=== PATIENT | female | born 1955 | race Caucasian/White ===

== ENCOUNTER 2017-07-16 16:15 | Outpatient (CLI) | payer OTHER ==
--- NOTE | 2017-07-17 15:25 | MRI Report ---
EXAM: LEFT KNEE MRI WITHOUT CONTRAST EXAM DATE: 07/16/2017 05:01 PM. CLINICAL HISTORY: Left knee pain. COMPARISON: None. TECHNIQUE: Multiplanar, multisequence T1-weighted and fluid-sensitive sequences of the knee without c ontrast. Other: None. FINDINGS: Bones: Subjacent marrow edema seen in the trochlear groove. Small cyst versus enchondroma seen distal femur measures about 5 mm. No fractures. Marginal arthrosis seen at the medial and lateral compartme nts. 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 Some grade 4 chondr omalacia at the medial patellar facet, some grade 3 chondromalacia at the patellar apex. Multifocal g rade 3-4 chondromalacia on both sides of the medial compartment. Medial Meniscus: Medial meniscus is intact, somewhat subluxed out of the joint, bowing the otherwise intact and normal-appearing MCL medially. Lateral Meniscus: The lateral meniscus is intact. Cruciate Ligaments: The anterior and posterior cruciate ligaments are intact. Collateral Ligaments: The medial collateral and lateral collateral ligamentous structures are intact. Tendons: The quadriceps, patellar, semimembranosus, and popliteus tendons are unremarkable. Musculature: No edema or fatty atrophy. Other: Small joint effusion. No popliteal cyst. Small ganglion arises from the posterior margin of th e knee . Please see series 501 image 16. No loose bodies. The medial and lateral retinacula are intac t. Some edema is seen in Hoffa's fat pad. IMPRESSION: 1. Subjacent marrow edema in the trochlear groove with some associated grade 3-4 chondromalacia. No f ractures. Marginal arthrosis at the medial and lateral compartments. Multifocal grade 3-4 chondromala felicita in both sides of the medial compartment. 2. Medial meniscus is intact, somewhat subluxed out of the joint, bowing the otherwise intact and nor mal-appearing MCL medially. 3. LCL, cruciates appear normal. Some edema in Hoffa's fat pad. [facility] MUSCULOSKELETAL RADIOLOGY SECTION Referring Provider Line: [phone] SITE ID: [id number]
== END 2017-07-16 16:16 | disposition home or self-care (01) ==
LOC: DI 16:15
DX: M25.562 Pain in left knee (principal); M94.262 Chondromalacia, left knee

== ENCOUNTER 2018-05-21 14:08 | Emergency (ER) | payer OTHER ==
--- NOTE | 2018-05-21 15:03 | XRAY Report ---
Reason: injury Procedure Date: 05/21/2018 Accession Number: [id number] / [id number] Procedure: XR - Ankle 3 View LT CPT Code: FULL RESULT: EXAM: LEFT ANKLE RADIOGRAPHY EXAM DATE: 05/21/2018 02:51 PM. CLINICAL HISTORY: Injury. COMPARISON: None. TECHNIQUE: 3 views. FINDINGS: Bones: There is a nondisplaced fracture of the distal fibula. Joints: No subluxations. Soft Tissues: There is lateral soft tissue swelling. IMPRESSION: Distal fibula fracture [facility]
--- NOTE | 2018-05-21 16:21 | ED Physician Documentation ---
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 - Present Medications Home Medications: Ambulatory Orders Medication Instructions Recorded Confirmed Home Medications Unobtainable 05/21/18 05/21/18 [HOME MEDICATIONS UNOBTAINABLE] - Allergies Allergies/Adverse Reactions: Allergies Allergy/AdvReac Type Severity Reaction Status Date / Time Penicillins Allergy Edema Verified 05/21/18 14:23 - Social History Does the pt smoke?: No Smoking Status: Never smoker Does the pt drink ETOH?: No Does the pt have substance abuse?: No Substance Use and Type: Marijuana - Immunizations Immunizations are current?: Yes - POLST Patient has POLST: No PD ED PE NORMAL - Vitals Vital signs reviewed: Yes - Extremities Extremities: Other (knee NT, prox tib fin NT, lateral ankle + edema and TTP la teral mall and ST inferior to lateral mall, no 5th MT TTP, MSV intact) Results - Vitals Vitals: Vital Signs - 24 hr 05/21/18 14:21 Temperature 36.7 C Heart Rate 69 Respiratory 18 Rate Blood Pressure 151/77 H O2 Saturation 100 Oxygen O2 Source Room air Procedures - Splint (location) LLE Splint applied by: Tech Type of splint: Fiberglass, Short leg, Posterior Other: Patient tolerated well, No complications, Neurovascular intact, Crutches provided, Other Departure - Departure Disposition: 01 Home, Self Care Clinical Impression: Fracture of distal fibula Qualifiers: Encounter type: initial encounter Fracture type: closed Fracture morphology: other fracture Laterality: left Qualified Code(s): S82.832A - Other fracture of upper and lower end of left fibula, initial encounter for closed fracture Condition: Good Instructions: ED Cast Care Fiberglass, ED Fx Ankle Lateral Malleolus Follow-Up: [facility] [Provider Group] Comments: Ice and elevate to keep the swelling down Motrin and tylenol for the pain Wear the splint and use the crutches - no weight bearing Follow up with orthopedics - call to schedule Return if worse Forms: Activity restrictions
[2018-05-21 17:04] VITALS: BP 148/78
== END 2018-05-21 16:50 | disposition home or self-care (01) ==
LOC: ED 14:08
DX: I10 Essential (primary) hypertension (principal); S82.832A Other fracture of upper and lower end of left fibula, initial encounter for closed fracture; X50.1XXA Overexertion from prolonged static or awkward postures, initial encounter; Y93.01 Activity, walking, marching and hiking
CPT/HCPCS: 29515; 99283

== ENCOUNTER 2019-08-31 09:04 | Emergency (ER) | payer OTHER ==
--- NOTE | 2019-08-31 09:42 | ED Physician Documentation ---
History of Present Illness - Stated complaint Stated Complaint: BILAT LEG PX - Chief complaint Chief Complaint: General - Additonal information Additional information: This is a 64-year-old female with a history of hypertension who presents with multiple chronic complaints. For the last 6 weeks she recounts that she occasionally will have sweating in her feet and her hands which will resolve spontaneously. She intermittently gets cramps in her legs. There is a bilateral cramps, and they are not associated with any swelling or redness. No cramps at this moment. She feels sometimes flushed in her face and this last for few minutes. She states that she has been very fatigued from taking care of her daughter who has multiple sclerosis. She has been seen by her primary care provider for these complaints, and states that they restarted her on her blood pressure medications, but she has not felt better despite this, and she has not any blood work done so she is hoping to get checked out today. She denies chest pain, shortness of breath, fever, vomiting, diarrhea. She denies any abdominal pain but states that time she will have a feeling like her entire abdomen is cramping up, this is been going on years since she had a tummy tuck. At this time she has no cramping or discomfort. 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 - Present Medications Home Medications: Ambulatory Orders Medication Instructions Recorded Confirmed Home Medications Unobtainable 05/21/18 05/21/18 [HOME MEDICATIONS UNOBTAINABLE] - Allergies Allergies/Adverse Reactions: Allergies Allergy/AdvReac Type Severity Reaction Status Date / Time Penicillins Allergy Edema Verified 08/31/19 09:16 - Social History Does the pt smoke?: No Smoking Status: Never smoker Does the pt drink ETOH?: No Does the pt have substance abuse?: No - Immunizations Immunizations are current?: Yes - POLST Patient has POLST: No PD ED PE NORMAL - Vitals Vital signs reviewed: Yes - General General: Alert and oriented X 3, No acute distress - HEENT HEENT: Atraumatic, PERRL - Neck Neck: Supple, no meningeal sign - Cardiac Cardiac: RRR, No murmur - Respiratory Respiratory: No respiratory distress, Clear bilaterally - Abdomen Abdomen: Normal bowel sounds, Soft, Non tender, Non distended - Derm Derm: Warm and dry - Extremities Extremities: No deformity, No tenderness to palpate, Normal ROM s pain, No edema, No calf tenderness / cord - Neuro Neuro: Alert and oriented X 3, bedspread seamer 2-12 intact, No motor deficit, No sensory deficit, Normal speech - Psych Psych: Normal mood, Normal affect Results - Vitals Vitals: Oxygen O2 Source Room air - Labs Labs: Laboratory Tests 08/31/19 08/31/19 08/31/19 10:03 10:24 10:24 WBC 5.9 RBC 5.02 Hgb 15.2 Hct 45.2 MCV 90.0 MCH 30.3 MCHC 33.6 RDW 12.6 Plt Count 318 MPV 9.9 Neut # (Auto) 4.3 Lymph # (Auto) 1.2 L [place] # (Auto) 0.4 Eos # (Auto) 0.0 Baso # (Auto) 0.1 Absolute Nucleated RBC 0.00 Nucleated RBC % 0.0 ESR Sodium 138 Potassium 3.8 Chloride 103 Carbon Dioxide 24 Anion Gap 11.0 BUN 11 Creatinine 0.7 Estimated GFR (MDRD) 85 L Glucose 128 H Calcium 10.1 Total Bilirubin 0.5 AST 23 ALT 24 Alkaline Phosphatase 68 Total Protein 7.9 Albumin 4.9 Globulin 3.0 Albumin/Globulin Ratio 1.6 Lipase 30 TSH Urine Color YELLOW Urine Clarity CLEAR Urine pH 6.0 Ur Specific [place] <=1.005 Urine Protein NEGATIVE Urine Glucose (UA) NEGATIVE Urine Ketones NEGATIVE Urine Occult Blood NEGATIVE Urine Nitrite NEGATIVE Urine Bilirubin NEGATIVE Urine Urobilinogen 0.2 (NORMAL) Ur Leukocyte Esterase NEGATIVE Ur Microscopic Review NOT INDICATED 08/31/19 08/31/19 10:24 10:24 WBC RBC Hgb Hct MCV MCH MCHC RDW Plt Count MPV Neut # (Auto) Lymph # (Auto) [place] # (Auto) Eos # (Auto) Baso # (Auto) Absolute Nucleated RBC Nucleated RBC % ESR 3 Sodium Potassium Chloride Carbon Dioxide Anion Gap BUN Creatinine Estimated GFR (MDRD) Glucose Calcium Total Bilirubin AST ALT Alkaline Phosphatase Total Protein Albumin Globulin Albumin/Globulin Ratio Lipase TSH 0.88 Urine Color Urine Clarity Urine pH Ur Specific [place] Urine Protein Urine Glucose (UA) Urine Ketones Urine Occult Blood Urine Nitrite Urine Bilirubin Urine Urobilinogen Ur Leukocyte Esterase Ur Microscopic Review PD MEDICAL DECISION MAKING - ED course Complexity details: considered differential (Electrolyte abnormality, autoimmune disease, anemia, UTI, stress reaction) ED course: Pt presents with mulitple mild and chronic complaints. Her VS and exam are reassuring. She is very well appearing. CBC, CMP, TSH, ESR, UA all unremarkable. I discussed that I do not see an obvious emergent cause of her symptoms but that she should continue to follow closely with her PCP and I also discussed return precautions. I also discussed that her stress from caregiver fatigue may be exacerbating or contributing to some of her symptoms, which she thinks is the case. We discussed support for this and she was discharged in the care of her partner. Departure - Departure Disposition: Home, Self Care Clinical Impression: Cramps, extremity Condition: Good Follow-Up: Kathie Alatorre MD [Primary Care Provider] - Within 1 week Comments: Your labs today are reassuring. Your TSH (thyroid level) and ESR lab (which looks for signs of inflammation/autoimmune type diseases), is still pending, please follow-up on these results with your primary care provider. Your urine test, CBC, and CMP, do not reveal any obvious cause of your symptoms. If you are having new concerning symptoms or worsening, return to the emergency department for recheck. Discharge Date/Time: 08/31/19 11:02
[2019-08-31 10:15] LABS: BILIRUBIN,URINE NEGATIVE (NEGATIVE); GLUCOSE, URINE (UA) NEGATIVE (NEGATIVE); KETONES,URINE (UA) NEGATIVE (NEGATIVE); LEUKOCYTE ESTERASE, URINE NEGATIVE (NEGATIVE); NITRITE,URINE NEGATIVE (NEGATIVE); OCCULT BLOOD,URINE NEGATIVE (NEGATIVE); PROTEIN,URINE NEGATIVE (NEGATIVE); UROBILINOGEN,URINE 0.2 (NORMAL) E.U./dL (NORMAL)
[2019-08-31 10:18] LABS: CLARITY,URINE CLEAR (CLEAR)
[2019-08-31 10:35] LABS: BASOPHILS # (AUTO) 0.1 10^3/uL (0.0-0.1); EOSINOPHILS % (AUTO) 0.5 %; HGB - HEMOGLOBIN 15.2 g/dL (12.0-16.0); LYMPHOCYTES # (AUTO) 1.2 10^3/uL (1.5-3.5); MEAN CORPUSCULAR HEMOGLOBIN 30.3 pg (27.0-31.0); MEAN CORPUSCULAR HGB CONC 33.6 g/dL (32.0-36.0); MEAN PLATELET VOLUME 9.9 fL (7.9-10.8); MONOCYTES # (AUTO) 0.4 10^3/uL (0.0-1.0); MONOCYTES % (AUTO) 5.9 %; NEUTROPHILS # (AUTO) 4.3 10^3/uL (1.5-6.6); NEUTROPHILS % (AUTO) 72.1 %; PLT - PLATELET COUNT 318 10^3/uL (130-450); RED BLOOD COUNT 5.02 10^6/uL (4.20-5.40); RED CELL DISTRIBUTION WIDTH 12.6 % (12.0-15.0); WHITE BLOOD COUNT 5.9 x10^3/uL (4.8-10.8)
[2019-08-31 10:53] LABS: ALBUMIN 4.9 g/dL (3.2-5.5); ALBUMIN/GLOBULIN RATIO 1.6 (1.0-2.2); BILIRUBIN,TOTAL 0.5 mg/dL (0.2-1.0); CALCIUM 10.1 mg/dL (8.5-10.3); CREATININE 0.7 mg/dL (0.4-1.0); TOTAL PROTEIN 7.9 g/dL (6.7-8.2)
[2019-08-31 11:03] VITALS: BP 133/94
== END 2019-08-31 11:02 | disposition home or self-care (01) ==
LOC: ED 09:04
DX: R25.2 Cramp and spasm (principal); F43.9 Reaction to severe stress, unspecified; R53.83 Other fatigue; I10 Essential (primary) hypertension
CPT/HCPCS: 36415; 80053; 81001; 81003; 83690; 84443; 85025; 85651; 99282; 99283

== ENCOUNTER 2021-05-25 11:26 | Outpatient (CLI) | payer MEDICARE, OTHER ==
--- NOTE | 2021-06-01 02:21 | XRAY Report ---
PROCEDURE: Cervical Spine 2 View INDICATIONS: NECK PAIN TECHNIQUE: 3 view(s) of the cervical spine were acquired. Images became available for interpretatio n on 05/31/2021 COMPARISON: None. FINDINGS: Bones: No fractures or dislocations to the C7-T1 level. The lateral masses of C1 appear intact on t he odontoid view. No suspicious bony lesions. There is overall appearance of cervical straightening . Severe disc space narrowing is present at C6-7, moderate C5-6. Anterior osteophytes are most promin ent at C5, C6 and C7. Multilevel uncovertebral arthropathy is present. Soft tissues: No prevertebral soft tissue swelling. IMPRESSION: Degenerative changes most notable from C5 through C7. If further evaluation of potential foraminal narrowing is desired, MRI cervical spine is recommended. Reviewed by: Viri Stevens MD on 06/01/2021 12:58 AM PDT Approved by: Viri Stevens MD on 06/01/2021 12:58 AM PDT Station ID: [id number]
== END 2021-05-25 23:59 | disposition home or self-care (01) ==
LOC: DI.N 11:26
PROVIDERS: ATTEND Nurse Practitioner
DX: M47.812 Spondylosis without myelopathy or radiculopathy, cervical region (principal)

== ENCOUNTER 2021-07-25 09:46 | Emergency (ER) | payer MEDICARE, OTHER ==
--- NOTE | 2021-07-25 11:04 | ED Physician Documentation ---
PD HPI HEENT - Stated complaint Stated Complaint: DIZZY - Chief complaint Chief Complaint: Heent - History obtained from History obtained from: Patient - History of Present Illness Timing - onset: How many weeks ago (has noted feeling of pain and pressure left side of head behind ear and in parietal area, associated with tinnitus. Now also having vertigo and lightheaded since yesterday. WOrse with position change.) Timing - duration: Weeks Timing - details: Gradual onset, Still present Location: Left ear Worsens: Position Associated symptoms: Swollen nodes (feeling of lump behind left ear.), Headache. No: Fever, Congestion, Facial swelling, Cough Similar symptoms before: Has not had sx before Recently seen: Not recently seen Review of Systems Constitutional: denies: Fever, Chills Eyes: denies: Loss of vision, Decreased vision Ears: reports: Loss of hearing (diminished mildly on left.), Tinnitus/ringing. denies: Ear pain, Drainage/discharge Nose: denies: Rhinorrhea / runny nose, Congestion Throat: denies: Dental pain / toothache, Sore throat Respiratory: denies: Cough Skin: denies: Rash, Lesions Neurologic: reports: Headache. 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[employer]: section - Present Medications Home Medications: Ambulatory Orders Medication Instructions Recorded Confirmed Cetirizine [ZyrTEC] 10 mg PO DAILY 20 Days #20 tablet 07/25/21 Meclizine HCl [Motion Sickness] 25 mg PO Q6H PRN #30 tablet 07/25/21 dexAMETHasone [Decadron] 4 mg PO DAILY #7 tablet 07/25/21 - Allergies Allergies/Adverse Reactions: Allergies Allergy/AdvReac Type Severity Reaction Status Date / Time Penicillins Allergy Edema Verified 07/25/21 10:03 - Social History Does the pt smoke?: No Smoking Status: Never smoker Does the pt drink ETOH?: No Does the pt have substance abuse?: No - Immunizations Immunizations are current?: Yes - POLST Patient has POLST: No PD ED PE NORMAL - Vitals Vital signs reviewed: Yes - General General: Alert and oriented X 3, Well developed/nourished - HEENT HEENT: PERRL, EOMI (with some nystagmus to the left.), Ears normal (left canal and TM appear normal. ), Other (mild tender at the left mastoid area without redness nor rash. ) - Neck Neck: Supple, no meningeal sign, No adenopathy - Cardiac Cardiac: RRR, No murmur - Respiratory Respiratory: Clear bilaterally - Derm Derm: Normal color, Warm and dry - Neuro Neuro: Alert and oriented X 3, leather grader 2-12 intact, No motor deficit, No sensory deficit, Normal speech, Other Eye Opening: Spontaneous Motor: Obeys Commands Verbal: Oriented GCS Score: 15 Results - Vitals Vitals: Oxygen O2 Source Room air - Labs Labs: Laboratory Tests 07/25/21 07/25/21 07/25/21 11:40 11:40 11:40 WBC 7.0 RBC 4.96 Hgb 15.5 Hct 44.7 MCV 90.1 MCH 31.3 H MCHC 34.7 RDW 12.6 Plt Count 322 MPV 9.1 Neut # (Auto) 4.7 Lymph # (Auto) 1.8 [place] # (Auto) 0.4 Eos # (Auto) 0.0 Baso # (Auto) 0.1 Absolute Nucleated RBC 0.00 Nucleated RBC % 0.0 ESR 4 Sodium 135 Potassium 4.1 Chloride 101 Carbon Dioxide 24 Anion Gap 10.0 BUN 13 Creatinine 0.7 Estimated GFR (MDRD) 84 L Glucose 100 Calcium 10.6 H Total Bilirubin 0.5 AST 25 ALT 26 Alkaline Phosphatase 86 Total Protein 8.3 H Albumin 4.8 Globulin 3.5 Albumin/Globulin Ratio 1.4 Lipase 26 - Rads (name of study) brain MRI Radiology: Prelim report reviewed (no acute process), See rad report PD MEDICAL DECISION MAKING - ED course Complexity details: reviewed results (MRI without acute process. ), re-evaluated patient (with normal labs and MRI, would need to consider process such as Meniere's. ), considered differential (left headache and feeling of pressure, gradually for 1-2 weeks, with tinnitus and now vertigo. COnsider mass effect or structural cause. CT would be lower accuracy. CAN see if MRI possible. ), d/w patient Departure - Departure Disposition: 01 Home, Self Care Clinical Impression: Left-sided headache, Vertigo Tinnitus Qualifiers: Laterality: left Qualified Code(s): H93.12 - Tinnitus, left ear Condition: Stable Record reviewed to determine appropriate education?: Yes Instructions: ED Vertigo Unspecified Follow-Up: TIFFANIE BEYER PA-C [Primary Care Provider] - [facility] [Provider Group] Prescriptions: dexAMETHasone [Decadron] 4 mg PO DAILY #7 tablet Meclizine HCl [Motion Sickness] 25 mg PO Q6H PRN #30 tablet PRN Reason: Vertigo Cetirizine [ZyrTEC] 10 mg PO DAILY 20 Days #20 tablet Comments: Your MRI does not show any acute structural abnormalities. Presume therefore you have some inflammation in through the middle and inner ear or the nerve that goes to those areas (Mnire's disease). We will treat this with initially some anti-inflammatories of Decadron steroid daily for a week and also cetirizine antihistamine daily for 2 to 3 weeks. Add meclizine every 6-8 hours if needed for vertigo. Stay well-hydrated otherwise. Follow-up with research biostatistician. Refer to the group name in [place] listed below. Discharge Date/Time: 07/25/21 13:28
[2021-07-25] MEDS: MECLIZINE 12.5 MG TABLET PO STA (11:43)
[2021-07-25] MEDS: DEXAMETHASONE 10 MG/ML VIAL PO STA (11:43)
[2021-07-25] MEDS: CHERRY SYRUP 10 ML UDC PO ONE (11:43)
[2021-07-25 11:45] LABS: BASOPHILS # (AUTO) 0.1 10^3/uL (0.0-0.1); BASOPHILS % (AUTO) 0.7 %; EOSINOPHILS % (AUTO) 0.6 %; HCT - HEMATOCRIT 44.7 % (37.0-47.0); HGB - HEMOGLOBIN 15.5 g/dL (12.0-16.0); LYMPHOCYTES # (AUTO) 1.8 10^3/uL (1.5-3.5); LYMPHOCYTES % (AUTO) 25.5 %; MEAN CORPUSCULAR HEMOGLOBIN 31.3 pg (27.0-31.0); MEAN CORPUSCULAR HGB CONC 34.7 g/dL (32.0-36.0); MEAN CORPUSCULAR VOLUME 90.1 fL (81.0-99.0); MEAN PLATELET VOLUME 9.1 fL (7.9-10.8); MONOCYTES # (AUTO) 0.4 10^3/uL (0.0-1.0); NEUTROPHILS # (AUTO) 4.7 10^3/uL (1.5-6.6); NEUTROPHILS % (AUTO) 67.1 %; PLT - PLATELET COUNT 322 10^3/uL (130-450); RED BLOOD COUNT 4.96 10^6/uL (4.20-5.40); RED CELL DISTRIBUTION WIDTH 12.6 % (12.0-15.0)
[2021-07-25 12:09] LABS: ALBUMIN 4.8 g/dL (3.2-5.5); ALBUMIN/GLOBULIN RATIO 1.4 (1.0-2.2); BILIRUBIN,TOTAL 0.5 mg/dL (0.2-1.0); CALCIUM 10.6 mg/dL (8.5-10.3); CREATININE 0.7 mg/dL (0.4-1.0); POTASSIUM 4.1 mmol/L (3.5-5.0); TOTAL PROTEIN 8.3 g/dL (6.7-8.2)
--- NOTE | 2021-07-25 12:58 | MRI Report ---
PROCEDURE: Brain W/O INDICATIONS: left parietal headache, tinnitus, vertigo TECHNIQUE: Noncontrast axial T1 spin echo, axial T2 fast spin echo, sagittal and axial FLAIR, coronal T2 fast sp in echo, axial gradient echo, axial diffusion and ADC through the brain. COMPARISON: None. FINDINGS: Image quality: Excellent. CSF Spaces: Basal cisterns are patent. No extra-axial fluid collections. Ventricles are normal in size and shape. Cavum septum vergae. Brain: No intracranial masses or hemorrhage. There is mild diffuse cerebral volume loss. Minimal deg ree of patchy high FLAIR signal within the periventricular and subcortical white matter. Pierson/white m atter interface is normal. Brainstem appears normal. Diffusion-weighted images demonstrate no acute ischemic insult. No chronic ischemic insults. Normal intravascular flow voids are present. Skull and face: Calvarium has normal marrow signal. Orbits appear normal. Sinuses: Sinuses and mastoids are clear. IMPRESSION: 1. No acute intracranial abnormality. 2. Mild volume loss. Minimal small vessel ischemic disease. 3. No acute process. No recent infarct. Reviewed by: Vero Medel MD on 07/25/2021 12:57 PM PST Approved by: Vero Medel MD on 07/25/2021 12:57 PM PST Station ID: [id number]
[2021-07-25 13:29] VITALS: BP 130/80
== END 2021-07-25 13:28 | disposition home or self-care (01) ==
LOC: ED 09:46
DX: H93.12 Tinnitus, left ear (principal); R51.9 Headache, unspecified; R42 Dizziness and giddiness
CPT/HCPCS: 36415; 70551; 80053; 83690; 85025; 85651; 99283; 99284; A9270

== ENCOUNTER 2021-08-08 10:21 | Outpatient (CLI) | payer MEDICARE, OTHER ==
--- NOTE | 2021-08-08 11:01 | XRAY Report ---
PROCEDURE: Cervical Spine 2 View INDICATIONS: CERVICALGIA TECHNIQUE: 3 view(s) of the cervical spine were acquired. COMPARISON: 05/17/2021 FINDINGS: Bones: No fractures or dislocations to the T1 level. The lateral masses of C1 appear intact on the odontoid view. No suspicious bony lesions. There is straightening of the normal cervical lordosis. At least moderate disc space narrowing is see n at C5-C6. Moderate to severe disc space narrowing is seen at C6-C7. Endplate irregularity and scler osis are seen, which are worst inferiorly. Partially bridging anterior osteophytes are seen at C5-C7. Soft tissues: No prevertebral soft tissue swelling. IMPRESSION: Lower cervical spine degenerative changes are seen, which are similar to the prior plain film study. Straightening of the normal cervical lordosis is seen, which is commonly observed in patients with mu scular spasm. If it would be helpful for clinical management decision making, please consider a dedicated cervical spine MRI for further evaluation (assuming that there is no contraindication). Reviewed by: Thompson Nixon MD on 08/08/2021 10:00 AM [facility] Approved by: Thompson Nixon MD on 08/08/2021 10:00 AM [facility] Station ID: [id number]
== END 2021-08-08 10:22 | disposition home or self-care (01) ==
LOC: DI 10:21
PROVIDERS: ATTEND Physician Assistant
DX: M50.322 Other cervical disc degeneration at C5-C6 level (principal)

== ENCOUNTER 2022-10-10 08:12 | Outpatient (CLI) | payer MEDICARE, OTHER ==
--- NOTE | 2022-10-10 18:44 | DEXA Report ---
PROCEDURE: Dexa Spine and/or Hip INDICATIONS: POST MENOPAUSAL TECHNIQUE: Dual energy x-ray absorptiometry (DXA) was performed on a [employer]! System. Regions measur ed are the AP Spine, femoral neck, and if needed forearm. COMPARISON: None. FINDINGS: Lumbar Spine: Bone Mineral Density 1.155 g/cm/cm,T score -0.2, normal Left Femoral Neck: Bone Mineral Density 0.864 g/cm/cm, T score -1.3, osteopenia Left Hip: Bone Mineral Density 0.841 g/cm/cm,T score -1.3, osteopenia (T score greater or equal to -1.0: NORMAL) (T score from -1.1 to -2.4: OSTEOPENIA) (T score less than or equal to -2.5 to: OSTEOPOROSIS) Impression: Osteopenia within the left femoral neck and hip. Patients with diagnosis of osteoporosis or osteopenia should have regular bone mineral density assess ment. For those eligible for Medicare, routine testing is allowed once every 2 years. Testing frequ ency can be increased for patients who have rapidly progressing disease or for those who are receivin g medical therapy to restore bone mass. Reviewed by: Viri Stevens MD on 10/10/2022 6:43 PM PDT Approved by: Viri Stevens MD on 10/10/2022 6:43 PM PDT Station ID: [id number]
== END 2022-10-10 08:13 | disposition home or self-care (01) ==
LOC: DI 08:12
PROVIDERS: ATTEND Physician Assistant
DX: Z78.0 Asymptomatic menopausal state (principal); M85.89 Other specified disorders of bone density and structure, multiple sites

== ENCOUNTER 2023-09-04 08:49 | Outpatient (CLI) | payer MEDICARE, OTHER ==
--- NOTE | 2023-09-11 09:20 | Ultrasound Report ---
LIMITED ULTRASOUND OF LEFT BREAST: 09/04/2023 CLINICAL: Palpable left breast lump. Comparison is made to exams dated: 09/04/2023 [facility], [facility], 09/12/[facility]22 [facility], 07/11/2021 mammogram - [facility], 06/27/2017 mammogram, and 5 mammogram - out side. Ultrasound of the left breast upper outer quadrant was performed on the area of interest. Pierson scal e images of the real-time examination were reviewed. IMPRESSION: NEGATIVE There is no sonographic evidence of malignancy. There is no mammographic or sonographic abnormality seen in the left breast to correspond with the pa lpable abnormality, however, clinical followup is recommended. Return to annual mammogram screening schedule is recommended. This exam was interpreted at Station ID: [id number]. Electronically Signed By: Lisa caldwell/debbie:09/10/2023 09:11:59 Ultrasound BI-RADS: 1 Negative BI-RADS CATEGORY: (1) - 1 Mammogram [id number] return to screening LATERALITY: (B)
--- NOTE | 2023-09-11 09:20 | Mammography Report ---
BILATERAL DIGITAL DIAGNOSTIC MAMMOGRAM 3D/2D WITH EXAGGERATED CC LATEROMEDIAL SPOT COMPRESSION: 024 CLINICAL: Palpable left painful axilla lump. Due for bilateral exam. Comparison is made to exams dated: 09/12/2022 mammogram, 07/11/2021 mammogram - [facility], and mammogram - [facility]. Both breasts are heterogeneously dense, which may obscure small masses (category c / 51-75% glandular tissue). No significant masses, calcifications, or other findings are seen in either breast. IMPRESSION: INCOMPLETE: NEEDS ADDITIONAL IMAGING EVALUATION There is no mammographic abnormality seen in the left axilla to correspond with the palpable abnormal ity in the left axilla, however, targeted ultrasound of the left breast is recommended and will be pe rformed immediately following this exam. Based on the Tyrer Cuzick model (a risk assessment model) the patient's lifetime risk is 6.5% and her 10 year risk is 3.4%. According to the ACR, ACS, and NCCN guidelines, an annual breast MRI exam raegan g with mammogram is recommended if the patient's lifetime risk is 20% or greater. This exam was interpreted at Station ID: [id number]. NOTE: For mammograms, a report in lay terms will be sent to the patient. Approximately 15% of breast malignancies will not be visualized mammographically. In the management of a palpable breast mass, a negative mammogram must not discourage biopsy of a clinically suspicious lesion. Electronically Signed By: Lisa Diaz M.D. lk/:09/04/2023 09:42:05 ACR BI-RADS Category 0: Incomplete 3340F PARENCHYMAL PATTERN: (D) - The breast(s) demonstrate(s) heterogeneously dense fibroglandular parenchy ma. BI-RADS CATEGORY: (0) - 0 Ultrasound [id number] Immediate follow-up LATERALITY: (B)
== END 2023-09-04 08:50 | disposition home or self-care (01) ==
LOC: DI 08:49
PROVIDERS: ATTEND Nurse Practitioner Family
DX: N63.32 Unspecified lump in axillary tail of the left breast (principal); R92.333 Mammographic heterogeneous density, bilateral breasts

== ENCOUNTER 2023-11-04 15:21 | Emergency (ER) | payer MEDICARE, OTHER ==
--- NOTE | 2023-11-04 16:08 | ED Physician Documentation ---
PD HPI HEAD INJURY - Stated complaint Stated Complaint: FALL - Chief complaint Chief Complaint: Trauma Hd/Nk - History obtained from History obtained from: Patient - Additional information Additional information: Patient is a 68-year-old female presenting for evaluation of fall and injuries to her face. Patient states she was out for a walk when she tripped and fell forward hitting her face against an uphill sidewalk. Patient denies LOC. She has been able to ambulate since. She reports getting fillers in her face and lip earlier today. She is unsure of her last tetanus. 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 - Present Medications Home Medications: Ambulatory Orders Medication Instructions Recorded Confirmed Cetirizine [ZyrTEC] 10 mg PO DAILY 20 Days #20 tablet 07/25/21 11/04/23 Multivitamin 1 tab PO DAILY 11/04/23 11/04/23 - Allergies Allergies/Adverse Reactions: Allergies Allergy/AdvReac Type Severity Reaction Status Date / Time Penicillins Allergy Edema Verified 11/04/23 15:29 - Social History Does the pt smoke?: No Smoking Status: Never smoker Does the pt drink ETOH?: No Does the pt have substance abuse?: No - Immunizations Immunizations are current?: Yes - POLST Patient has POLST: No PD ED PE NORMAL - General General: Alert and oriented X 3, No acute distress, Well developed/nourished - HEENT HEENT: PERRL, EOMI, Other (Abrasion over nasal bridge, upper lip, left cheek) - Neck Neck: Supple, no meningeal sign, No bony TTP - Cardiac Cardiac: RRR, Strong equal pulses - Respiratory Respiratory: No respiratory distress, Clear bilaterally - Abdomen Abdomen: Normal bowel sounds, Soft, Non tender, Non distended - Derm Derm: Warm and dry - Extremities Extremities: Other (Pain on range of motion of right shoulder, no pain at right elbow; left knee abrasion - normal ROM without pain) - Neuro Neuro: Alert and oriented X 3, No motor deficit, No sensory deficit, Normal speech Eye Opening: Spontaneous Motor: Obeys Commands Verbal: Oriented GCS Score: 15 Results - Vitals Vitals: Vital Signs - 24 hr 11/04/23 11/04/23 11/04/23 15:24 17:03 17:09 Temperature 36.4 C L Heart Rate 84 78 82 Respiratory 16 16 16 Rate Blood Pressure 183/93 H 149/98 H 147/92 H O2 Saturation 99 98 98 Oxygen O2 Source Room air PD Medical Decision Making - ED course Complexity details: reviewed results, d/w patient, d/w family ED course: Patient is a 68-year-old female presenting for evaluation of a head injury and facial abrasions after trip and fall earlier today. She is not on blood thinners. She did not have LOC. She has been ambulatory. Normal neuroexam. Given age and trauma CT head was obtained. Patient also has significant abrasions to the face so CT maxillofacial was obtained. No neck pain and good range of motion of the neck. CT head and maxillofacial were obtained and reviewed and without findings of fracture or other injuries. No septal hematoma. Wounds are not amenable to suture repair. Discussed continued wound care at home with bacitracin. No signs of infection at this time. X-ray of the right shoulder was also obtained given reports of pain and is negative for fracture or dislocation. Patient is comfortable with plan for discharge and Advised on concerning symptoms to return for. Departure - Departure Disposition: 01 Home, Self Care Clinical Impression: Head injury, Facial abrasion Condition: Stable Instructions: ED Abrasion Comments: The CT scan of your head, facial bones and the x-ray of your shoulder do not show any broken bones or other injuries from your fall. You do have several abrasions to the face. None of these would benefit from sutures but I would recommend that you use bacitracin to help while they heal. (I would not use Neosporin as one of the components is a common skin irritant). Please keep your wounds clean and dry. I would recommend ice and an anti-inflammatory to help with any areas of pain and swelling. Return to the emergency department with any worsening symptoms. Forms: PCP List Discharge Date/Time: 11/04/23 17:09
[2023-11-04] MEDS: TETANUS/DIPHTHERIA/PERTUSSIS 0.5 ML SYRINGE IM ONE (16:15)
--- NOTE | 2023-11-04 16:26 | XRAY Report ---
PROCEDURE: Shoulder 2+V RT INDICATIONS: fall/pain TECHNIQUE: 3 views of the shoulder were acquired. COMPARISON: None. FINDINGS: Bones: No fractures or dislocations. No suspicious bony lesions. Visualized ribs appear intact. Soft tissues: No suspicious soft tissue calcifications. The visualized lungs are within normal limi ts. IMPRESSION: No visualized acute fracture or dislocation. However, occult injury cannot be excluded. Recommend lillian rt interval imaging follow-up in 7-10 days as clinically indicated for additional evaluation. Reviewed by: Viri Stevens MD on 11/04/2023 4:25 PM PDT Approved by: Viri Stevens MD on 11/04/2023 4:25 PM PDT Station ID: [id number]
--- NOTE | 2023-11-04 16:42 | CT Report ---
PROCEDURE: Head WO INDICATIONS: fall/abrasions to face TECHNIQUE: Noncontrast 4.5 mm thick angled axial sections acquired from the foramen magnum to the vertex. For r adiation dose reduction, the following was used: automated exposure control, adjustment of mA and/or kV according to patient size. COMPARISON: MRI brain 07/25/2021 FINDINGS: Image quality: Excellent. CSF spaces: Basal cisterns are patent. No extra-axial fluid collections. Ventricles are normal in size and shape. Brain: No midline shift. No intracranial masses or hemorrhage. Mild age-related global volume loss. Pierson-white matter interface is normal. Skull and face: Calvarium and visualized facial bones are intact, without suspicious lesions. Sinuses: Visualized sinuses and mastoids are clear. IMPRESSION: No acute intracranial pathology. Reviewed by: Ignacio Mock MD on 11/04/2023 4:41 PM PDT Approved by: Ignacio Mock MD on 11/04/2023 4:41 PM PDT Station ID: [id number]
--- NOTE | 2023-11-04 16:44 | CT Report ---
PROCEDURE: Maxillofacial WO INDICATIONS: fall/abrasions to face TECHNIQUE: Noncontrast 1.5 mm thick axial images acquired from the mandible through the frontal sinuses, with co ambrocio and sagittal reformatting. For radiation dose reduction, the following was used: automated ex posure control, adjustment of mA and/or kV according to patient size. COMPARISON: None. FINDINGS: Image quality: Excellent. Bones and teeth: Orbital mcclain are intact. Sinus mcclain show no fracture or deformity. Nasal bones and septum are intact. Visualized portions of the mandible demonstrate no fractures or subluxation. Zygomatic arches are intact. Pterygoid plates are intact. Visualized portions of the skull base an d auditory canals are intact. Sinuses: Paranasal sinuses are aerated, without fluid levels, mucosal thickening, or mucoceles. [place] air cells are aerated. Soft tissues: No edema, masses, or fluid collections. No enlarged lymph nodes. No soft tissue lace rations or debris. Vascular: Visualized vascular structures appear normal in the absence of contrast. Bony vascular fo ramina and canals are intact. IMPRESSION: No acute facial fractures. Reviewed by: Ignacio Mock MD on 11/04/2023 4:43 PM PDT Approved by: Ignacio Mock MD on 11/04/2023 4:43 PM PDT Station ID: [id number]
[2023-11-04] MEDS ORDERED: BACITRACIN ZINC OINT 1 PACKET TOP STA (16:52)
[2023-11-04 17:06] VITALS: O2SAT 98
[2023-11-04 17:15] VITALS: BP 147/92
== END 2023-11-04 17:09 | disposition home or self-care (01) ==
LOC: ED 15:21
DX: S00.31XA Abrasion of nose, initial encounter (principal); S00.511A Abrasion of lip, initial encounter; S00.81XA Abrasion of other part of head, initial encounter; W01.198A Fall on same level from slipping, tripping and stumbling with subsequent striking against other object, initial encounter; Y93.01 Activity, walking, marching and hiking; Z23 Encounter for immunization
CPT/HCPCS: 90471; 99284

== ENCOUNTER 2024-01-01 10:16 | Emergency (ER) | payer MEDICARE, OTHER ==
[2024-01-01 11:28] LABS: BASOPHILS # (AUTO) 0.1 10^3/uL (0.0-0.1); BASOPHILS % (AUTO) 0.9 %; EOSINOPHILS # (AUTO) 0.1 10^3/uL (0.0-0.7); EOSINOPHILS % (AUTO) 0.8 %; HCT - HEMATOCRIT 46.5 % (37.0-47.0); HGB - HEMOGLOBIN 15.5 g/dL (12.0-16.0); LYMPHOCYTES # (AUTO) 1.9 10^3/uL (1.5-3.5); LYMPHOCYTES % (AUTO) 30.2 %; MEAN CORPUSCULAR HEMOGLOBIN 29.8 pg (27.0-31.0); MEAN CORPUSCULAR HGB CONC 33.3 g/dL (32.0-36.0); MEAN CORPUSCULAR VOLUME 89.3 fL (81.0-99.0); MEAN PLATELET VOLUME 9.5 fL (7.9-10.8); MONOCYTES # (AUTO) 0.4 10^3/uL (0.0-1.0); MONOCYTES % (AUTO) 6.1 %; NEUTROPHILS % (AUTO) 61.7 %; PLT - PLATELET COUNT 301 10^3/uL (130-450); RED BLOOD COUNT 5.21 10^6/uL (4.20-5.40); RED CELL DISTRIBUTION WIDTH 12.3 % (12.0-15.0); WHITE BLOOD COUNT 6.4 x10^3/uL (4.8-10.8)
[2024-01-01 11:47] LABS: ALBUMIN 4.6 g/dL (3.2-5.5); ALBUMIN/GLOBULIN RATIO 1.5 (1.0-2.2); BILIRUBIN,TOTAL 0.4 mg/dL (0.2-1.0); CALCIUM 10.9 mg/dL (8.5-10.3); CREATININE 0.8 mg/dL (0.6-1.3); MAGNESIUM 2.1 mg/dL (1.7-2.3); POTASSIUM 4.4 mmol/L (3.5-4.5); TOTAL PROTEIN 7.6 g/dL (6.4-8.9)
--- NOTE | 2024-01-01 13:59 | ED Physician Documentation ---
History of Present Illness - Stated complaint Stated Complaint: HIGH BP,DIZZINESS,NUMB - Chief complaint Chief Complaint: Neuro - Additonal information Additional information: 68-year-old female with history of hypertension currently untreated presents emergency department for episode of dizziness, right facial numbness and tingling with right peripheral vision loss. This happened earlier this morning she felt very fatigued generalized malaise and presents To the emergency department for concerns of hypertension and neurological deficits that occurred this morning. She currently does not have any more symptoms of dizziness, right facial numbness or tingling or any other concerning symptoms. PD PAST MEDICAL HISTORY - Past Medical History Cardiovascular: Hypertension Neuro: None - Past Surgical History Past Surgical History: Yes /STATIONARY FIREMAN: section - Present Medications Home Medications: Ambulatory Orders Medication Instructions Recorded Confirmed Cetirizine [ZyrTEC] 10 mg PO DAILY 20 Days #20 tablet 07/25/21 11/04/23 Multivitamin 1 tab PO DAILY 11/04/23 11/04/23 Lisinopril [Zestril] 10 mg PO DAILY #30 tablet 01/01/24 - Allergies Allergies/Adverse Reactions: Allergies Allergy/AdvReac Type Severity Reaction Status Date / Time Penicillins Allergy Edema Verified 01/01/24 10:49 - Social History Does the pt smoke?: No Smoking Status: Never smoker Does the pt drink ETOH?: No Does the pt have substance abuse?: No - Immunizations Immunizations are current?: Yes - POLST Patient has POLST: No PD ED PE NORMAL - Vitals Vital signs reviewed: Yes - General General: Alert and oriented X 3, No acute distress, Well developed/nourished - HEENT HEENT: Atraumatic, PERRL - Neck Neck: Supple, no meningeal sign - Cardiac Cardiac: RRR, No murmur, No gallop, Strong equal pulses - Respiratory Respiratory: No respiratory distress, Clear bilaterally - Abdomen Abdomen: Normal bowel sounds - Derm Derm: Normal color, Warm and dry, No rash - Extremities Extremities: No edema - Neuro Neuro: Alert and oriented X 3, 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, No motor deficit, No sensory deficit, Normal speech Eye Opening: Spontaneous Motor: Obeys Commands Verbal: Oriented GCS Score: 15 - Psych Psych: Normal mood, Normal affect Results - Vitals Vitals: Vital Signs - 24 hr 01/01/24 01/01/24 01/01/24 10:41 12:49 15:26 Temperature 36.5 C Heart Rate 73 75 66 Respiratory 16 16 18 Rate Blood Pressure 166/85 H 129/85 H 179/101 H O2 Saturation 96 100 100 01/01/24 01/01/24 18:21 18:25 Temperature 36.6 C Heart Rate 64 Respiratory 16 Rate Blood Pressure 176/96 H O2 Saturation 99 Oxygen O2 Source Room air - Labs Labs: Laboratory Tests 01/01/24 01/01/24 01/01/24 11:24 11:24 11:24 WBC 6.4 RBC 5.21 Hgb 15.5 Hct 46.5 MCV 89.3 MCH 29.8 MCHC 33.3 RDW 12.3 Plt Count 301 MPV 9.5 Neut # (Auto) 4.0 Lymph # (Auto) 1.9 [place] # (Auto) 0.4 Eos # (Auto) 0.1 Baso # (Auto) 0.1 Absolute Nucleated RBC 0.00 Nucleated RBC % 0.0 Sodium 137 Potassium 4.4 Chloride 104 Carbon Dioxide 28 Anion Gap 5.0 L BUN 14 Creatinine 0.8 Estimated GFR (MDRD) 72 L Glucose 102 Calcium 10.9 H Magnesium 2.1 Total Bilirubin 0.4 AST 20 ALT 20 Alkaline Phosphatase 72 Troponin I High Sens < 2.3 L Total Protein 7.6 Albumin 4.6 Globulin 3.0 Albumin/Globulin Ratio 1.5 Lipase 17 - Rads (name of study) Brain MRI with and without Relevant Findings:: Final report received, EMP independent interpretation of test, Other (On remarkable brain MRI no intracranial abnormalities) Head CT without Relevant Findings:: Final report received, EMP independent interpretation of test, Other (No acute intracranial pathology.) Angio head and neck Relevant Findings:: Final report received, EMP independent interpretation of test, Other (No acute intracranial or neck arterial abnormalities.) PD Medical Decision Making - ED course ED course: 68-year-old female presents emergency department for episode of dizziness, vision changes and right facial numbness and tingling. He has assented very similar to a TIA we decided to do a more thorough workup. Labs are unremarkable no leukocytosis no anemia. Electrolytes are found to be unremarkable aside from a very minimally elevated calcium level at 10.9. Normal troponin and normal lipase. Head CT without con was complete for further evaluation and there was no intracranial hemorrhages or other acute abnormalities. Angio head and neck was also complete no arterial abnormalitIES visualized in the head or neck as well. For further evaluation of possible TIA patient was amenable to stay for head MRI for further evaluation which was found to be also unremarkable. We discussed that although MRI was negative for TIA there is still could have been a possible TIA that MRI did not detect. She opted to start on antihypertensives so I sent a prescription of lisinopril 10 mg once daily to her preferred pharmacy and she is given a dose of it here in the emergency department tonight. In regards to anticholesterol medications and dual antiplatelet therapy she said she wanted to hold off until she is able to speak with her primary care provider for further evaluation and wanted us to adjust antihypertensives for now. At this point in time patient is safe for discharge she has had no other recurrent episodes of dizziness, facial numbness or vision changes. At this point in time I believe she is safe for discharge return precautions given she has a follow-up appointment with her primary care provider coming up. Departure - Departure Disposition: 01 Home, Self Care Clinical Impression: Hypertension, Dizziness Instructions: ED HTN Established, ED Hypertension Poss Prescriptions: Lisinopril [Zestril] 10 mg PO DAILY #30 tablet Comments: Thank you for trusting us with your care we have completed a very thorough workup including labs, head CT, neck CT, brain MRI for further evaluation of your episode of dizziness with right-sided vision loss today. At this point in time we are not seeing any abnormalities or findings that could be contributing to this although like we discussed it still could be a TIA that was not picked up on the MRI. We discussed starting antiplatelet therapy as well as anticholesterol medication here in the ER and you decided to hold off until you are able to follow-up with your primary care provider for further evaluation and labs. If started you on antihypertensives here in the emergency department called lisinopril we have given you 10 mg tonight and you will take this 10 mg every morning until you are able to follow-up with your primary care provider for further evaluation. Let your primary care provider know about today's ER visit you can call medical records and have all today's chart notes and imaging sent over to your primary care provider's office. Please come back to the ER if the symptoms recur or if any worsening symptoms happen. Forms: PCP List Discharge Date/Time: 01/01/24 18:27
[2024-01-01] MEDS ORDERED: iohexoL-300 100 ML VIAL ONE (14:10)
--- NOTE | 2024-01-01 15:46 | CT Report ---
PROCEDURE: Head WO INDICATIONS: TIA symptoms right facial numbeness TECHNIQUE: Noncontrast 4.5 mm thick angled axial sections acquired from the foramen magnum to the vertex. For r adiation dose reduction, the following was used: automated exposure control, adjustment of mA and/or kV according to patient size. COMPARISON: Brain MRI dated 07/25/2021 FINDINGS: Image quality: Excellent. CSF spaces: Basal cisterns are patent. No extra-axial fluid collections. Ventricles are normal in size and shape. Brain: No midline shift. No intracranial masses or hemorrhage. Pierson-white matter interface is norm al. Skull and face: Calvarium and visualized facial bones are intact, without suspicious lesions. Sinuses: Visualized sinuses and mastoids are clear. IMPRESSION: No acute intracranial pathology. Reviewed by: Umesh López MD on 01/01/2024 3:45 PM PDT Approved by: Umesh López MD on 01/01/2024 3:45 PM PDT Station ID: [id number]
--- NOTE | 2024-01-01 15:51 | CT Report ---
PROCEDURE: Angio Head/Neck INDICATIONS: TIA symptoms right facial numbeness TECHNIQUE: After the administration of intravenous contrast, 1 mm thick sections acquired from the aortic arch t hrough the [place]. 3-dimensional fydxcuz-edcbmoowv-mvvpahsawt (MIP) and/or volume renderin g reformats were acquired of the central intracranial vasculature and neck separately. For radiation dose reduction, the following was used: automated exposure control, adjustment of mA and/or kV acco rding to patient size. CONTRAST: Omni 300 80ml COMPARISON: CT head from the same date immediately prior to this study. FINDINGS: Image quality: Diagnostic. HEAD CT: CSF Spaces: Basal cisterns are patent. No extra-axial fluid collections. Ventricles are normal in size and shape. Brain: No significant abnormality is seen for scanning technique. Skull and face: Calvarium and visualized facial bones appear intact, without suspicious lesions. Sinuses: Visualized sinuses and mastoids are clear. HEAD CT ANGIOGRAPHY: Anterior circulation: Intracranial internal carotid arteries are normal in size and flow. The flow within the paired anterior cerebral arteries is normal and symmetric. The flow within the middle cer ebral arteries is normal and symmetric. The anterior communicating artery is seen. No aneurysms are seen. Posterior circulation: Visualized portions of the vertebral arteries demonstrate normal caliber, and join to form a normal appearing basilar artery. Flow within the posterior cerebral arteries is norm al and symmetric. No aneurysms are seen. NECK CT ANGIOGRAPHY: Carotid system: The great vessels demonstrate a conventional anatomy as they arise from the aortic a rch. The origins of the common carotid arteries appear patent. The common carotid arteries demonstr ate normal caliber and courses. The bifurcation regions are both widely patent. The internal caroti d arteries demonstrate normal calibers and courses. Posterior circulation: The origins of the vertebral arteries both appear widely patent. The more gibbons perior extracranial portions of both vertebral arteries also demonstrate normal courses and calibers. They join to form a normal appearing basilar artery. Soft tissues: Visualized neck soft tissues demonstrate no suspicious abnormalities. Bones: No suspicious bony lesions. Visualized cervical spine appears normally aligned. IMPRESSION: No significant intracranial arterial abnormality is seen. No significant abnormality is seen within the arteries of the neck. The estimate of stenosis included in the report of the imaging study was calculated using the NASCET method Reviewed by: Umesh López MD on 01/01/2024 3:50 PM PDT Approved by: Umesh López MD on 01/01/2024 3:50 PM PDT Station ID: [id number]
[2024-01-01] MEDS: iohexoL-300 100 ML VIAL IVP ONE (15:55)
--- NOTE | 2024-01-01 16:27 | MRI Report ---
PROCEDURE: Brain WO INDICATIONS: TIA symptoms, right facial numbness, dizziness TECHNIQUE: Noncontrast axial T1 spin echo, axial T2 fast spin echo, sagittal and axial FLAIR, coronal T2 fast sp in echo, axial gradient echo, axial diffusion and ADC through the brain. COMPARISON: Brain MRI without contrast dated 07/25/2021, CT head without contrast dated 01/01/2024. FINDINGS: Image quality: Excellent. CSF Spaces: Basal cisterns are patent. No extra-axial fluid collections. Ventricles are normal in size and shape. Brain: No intracranial masses or hemorrhage. Pierson/white matter interface is normal. Brainstem appe ars normal. Diffusion-weighted images demonstrate no acute ischemic insult. No chronic ischemic ins ults. Very tiny foci of increased T2 signal are noted in deep white matter structures, within normal limits for patient age. Normal intravascular flow voids are present. Skull and face: Calvarium has normal marrow signal. Orbits appear normal. Sinuses: Sinuses and mastoids are clear. IMPRESSION: Unremarkable brain MRI for patient age. No acute intracranial process. Reviewed by: Umesh López MD on 01/01/2024 4:25 PM PDT Approved by: Umesh López MD on 01/01/2024 4:25 PM PDT Station ID: [id number]
[2024-01-01] MEDS: lisinopriL 5 MG TABLET PO STA (18:18)
[2024-01-01 18:31] VITALS: BP 176/96; O2SAT 99
== END 2024-01-01 18:27 | disposition home or self-care (01) ==
LOC: ED 10:16
DX: I10 Essential (primary) hypertension (principal); R42 Dizziness and giddiness
CPT/HCPCS: 36415; 70450; 70496; 70498; 70551; 80053; 83690; 83735; 84484; 85025; 93005; 99284; A9270; Q9967